=== PATIENT | female | born 1940 | race Caucasian/White ===

== ENCOUNTER 2016-08-31 04:37 | Emergency (ER) | payer MEDICARE ==
[2016-08-31] MEDS ORDERED: SILVER NITRATE APPLICATOR TOP ONE ×2 (04:47→04:54)
[2016-08-31] MEDS ORDERED: COCAINE 4% TOPICAL SOLN 4 ML BOT TOP ONE ×2 (04:48→04:54)
--- NOTE | 2016-08-31 04:49 | EDPRACDOC ---
- General Information Stated Complaint: NOSE BLEED Time Seen by Provider: 08/31/16 04:39 Home Medications: Home Medications Acetaminophen 500 - 1,000 mg PO Q4-6H PRN 11/15/13 Aspirin (Enteric Coated) [Halfprin] 81 mg PO DAILY 11/15/13 Dicyclomine HCl [Bentyl] 10 mg PO Q6H PRN 11/15/13 Oxycodone HCl/Acetaminophen [Percocet 5-325 mg Tablet] 1 tab PO Q4-6H PRN #10 tab 11/15/13 Rosuvastatin Calcium [Crestor] 10 mg PO DAILY 11/15/13 Sertraline HCl [Zoloft] 100 mg PO DAILY 11/15/13 Zolpidem Tartrate [Ambien] 5 mg PO HS PRN 11/15/13 Hydrocodone Bit/Acetaminophen [Hydrocodon-Acetaminophen 5-325] 1 tab PO Q6H PRN #10 tab 11/17/13 Ketorolac Tromethamine [Toradol] 10 mg PO Q6H PRN #20 tab 11/17/13 Amoxicillin/Potassium Clav [Augmentin 875-125 Tablet] 1 each PO BID #10 tablet 08/31/16 Allergies/Adverse Reactions: Allergies Allergy/AdvReac Type Severity Reaction Status Date / Time adhesive tape Allergy Rash-Locali Verified 08/31/16 05:04 zed codeine Allergy Hives* Verified 11/17/13 12:29 Latex, Natural Rubber Allergy Rash-Locali Verified 08/31/16 05:04 zed - History of Present Illness HPI: RECENT DX OF PE AT [facility]. ON LOV[facility] NOW; APPT COMING UP WITH [facility] NEXT WEEK TO DISCUSS ORAL OPTIONS. NO NOAC'S OR COUMADIN AT THIS TIME. Blood Location: Right Naris Amount: Small Use of: Reports: Other (LOVENOX) Relevent History of: Reports: None Bleeding: Reports: Controlled Associated Signs & Symptoms: Reports: None ED Past Medical History - History Reviewed Yes Nurses notes reviewed and agree except as marked - Patient Medical History Cardiac History: Reports: Hypercholesterolemia Respiratory History: Reports: Asthma EDM Review of Systems - Review of Systems ROS Negative Except as Marked: Yes All systems reviewed and were negative except as marked - Physical Exam Constitutional: Alert (Awake), No apparent distress Oriented to: Time, Person, Place Last recorded Vital Signs: Oxygen Pulse Oxygen Saturation O2 Device Oxygen Flow Rate Fraction of Inspired Oxygen ( FIO2) - HEENT Head: Normal ( normocephalic) Eye Exam: Normal (PERRL, EOMI, Sclera white) Oropharynx: Normal (Pharynx:Moist without exudate,Gums-no swelling) ENT EAC: Normal TMJ: Normal Nose: Bleeding Neck: Normal (FROM, trachea at midline) - Respiratory/Cardiovascular Respiratory: Normal - CTA (BBS clear to auscultation without adventitious sounds ) Cardiovascular: Normal (RRR without murmur, gallop or rub) - GI Auscultation: Normal (NABS) Palpation: Normal (Soft,No rebound or guarding, non distended) Tenderness: Non tender Torres's Sign: Negative - Musculoskeletal Back: Normal (Non-Tender) Extremities: Normal (Normal tone, Pulses 2+ No cyanosis or edema, FROM) - Integumentary Skin: Normal, Warm, Dry Lymphatics: Normal (no adenopathy) - Neurologic Memory Impaired: Normal Motor Function: Normal (Normal tone, Pulses 2+ No cyanosis or edema, FROM) Cranial Nerve: Normal (CN II-X11 intact sensation, strength 5/5) Cerebellar: Normal Mood Description: Normal Perception: Normal ED Procedures - Nasal Cautery and Pack Informed of risks, benefits and alternatives described: Yes Informed Consent Signed: Verbal Indication: Anterior Epistaxis Silver Nitrate cautery performed around bleeding site: Yes Hemostasis was obtained: Yes Packing used: Expanding sponge - Results 08/31/16 05:00 - Additional Information PT HAD DIFFICULTY WITH PACKING. I TALKED HER THROUGH THE PROCEDURE Decision Time to Discharge: 05:31 - Departure Yes I personally saw and evaluated the patient. Condition: Good Final Diagnosis: EPISTAXIS, NASAL PACKING BY ESAU Instructions: Nosebleed (ED) Education/Counseling Given To: Patient, Family Member Education/Counseling Given Regarding: Diagnosis, Treatment, Prognosis Referrals: None,No Provider [Primary Care Provider] - One Week Chip Wood DO [Staff Physician] - One Week Prescriptions: New Amoxicillin/Potassium Clav [Augmentin 875-125 Tablet] 1 each PO BID #10 tablet No Action Zolpidem Tartrate [Ambien] 5 mg PO HS PRN PRN Reason: Sleep Or Insomnia Sertraline HCl [Zoloft] 100 mg PO DAILY Rosuvastatin Calcium [Crestor] 10 mg PO DAILY Aspirin (Enteric Coated) [Halfprin] 81 mg PO DAILY Dicyclomine HCl [Bentyl] 10 mg PO Q6H PRN PRN Reason: Abdominal Cramps Acetaminophen 500 - 1,000 mg PO Q4-6H PRN PRN Reason: Pain Oxycodone HCl/Acetaminophen [Percocet 5-325 mg Tablet] 1 tab PO Q4-6H PRN # 10 tab PRN Reason: Pain Hydrocodone Bit/Acetaminophen [Hydrocodon-Acetaminophen 5-325] 1 tab PO Q6H PRN #10 tab PRN Reason: Pain Ketorolac Tromethamine [Toradol] 10 mg PO Q6H PRN #20 tab PRN Reason: Pain Additional Instructions: REMOVE PACKING Tuesday
[2016-08-31 04:53] VITALS: TEMP 98.1; BMI 26.1
[2016-08-31 05:17] LABS: AUTOMATED BASOPHIL 0.9 % (0-2); AUTOMATED EOSINOPHIL 4.9 % (0-5); AUTOMATED LYMPH 40.3 % (17-44); AUTOMATED MONOCYTE 8.6 % (3-10); AUTOMATED NEUTROPHIL 45.3 % (45-76); MPV 8.1 fL (7.4-10.4)
[2016-08-31 05:48] VITALS: BP 150/69; PULSE 60
== END 2016-08-31 05:39 | disposition home or self-care (01) ==
LOC: ED 04:37
DX: R04.0 Epistaxis (principal); E78.00 Pure hypercholesterolemia, unspecified; Z79.899 Other long term (current) drug therapy; Z86.711 Personal history of pulmonary embolism
CPT/HCPCS: 30901; 36415; 85025; 85610; 99283; A9270; J3490